=== PATIENT | male | born 1965 | race Caucasian/White ===

== ENCOUNTER 2021-04-23 15:12 | Emergency (ER) | payer BC ==
[~2021-04-23] VITALS: Ht 178 cm; Wt 103.0 kg
--- NOTE | 2021-04-23 15:44 | ED Integumentary General ---
General Chief Complaint: Bite-Animal/Human/Insect Stated Complaint: POSS SPIDER BITE,SWELLING Nursing Triage Note: PT STATES HE WAS SMOKING SOME MEAT AND MAY HAVE GOTTEN BIT BY A SPIDER WHEN HE WAS GRABBING WOOD FROM THE PILE. LT HAND SWOLLEN WITH POSSIBLE BITE AL. PT DID NOT SEE THE SPIDER. Source: patient Exam Limitations: no limitations History of Present Illness Date Seen by Provider: April 23, 2021 Time Seen by Provider: 15:35 Initial Comments Patient is a 56-year-old male who presents to the emergency department today with a chief complaint of a concern for a bite of some type on the dorsum of his left hand between his thumb and index finger. Patient was rummaging around in a wood pile getting ready to use a smoker when he went inside afterwards and then noticed that his left hand was starting to swell. Patient has a small scrape to the dorsum of the left hand and possibly a couple of puncture trent on the back of his hand. Patient did not see a snake nor did he see an insect that actually bit him. He denies any shortness of breath, chest pain, pain in his left arm or hand at the moment. He does have some discomfort with the swelling however. No fevers chills or other muscle aches. All other review of systems reviewed and negative except as stated above. Timing/Duration: this afternoon Severity: mild Location: hands Possible Cause: other (Possibly an insect bite possibly a snake bite) Associated Symptoms: denies symptoms Allergies and Home Medications Allergies Coded Allergies: No Known Drug Allergies (Unverified , 04/23/21) Home Medications No Active Prescriptions or Reported Meds Patient Home Medication List Home Medication List Reviewed: Yes Review of Systems Review of Systems Constitutional: see HPI; No chills, No diaphoresis EENTM: no symptoms reported Respiratory: no symptoms reported Cardiovascular: no symptoms reported Gastrointestinal: no symptoms reported; No nausea, No vomiting Genitourinary: no symptoms reported Musculoskeletal: joint pain (Swelling and mild discomfort to the dorsum of the left hand) Skin: lesions Hematologic/Lymphatic: Denies Easy Bleeding, Denies Easy Bruising All Other Systems Reviewed Negative Unless Noted: Yes Past Vpizifc-Drnbld-Jfoxzc Hx Patient Social History Recent Infectious Disease Expo: No Physical Exam Vital Signs Vital Signs - First Documented 04/23/21 15:34 Temp 36.9 Pulse 78 Resp 20 B/P (MAP) 162/99 (120) Pulse Ox 97 O2 Delivery Room Air Capillary Refill : Less Than 3 Seconds General Appearance: WD/WN, no apparent distress Neck: full range of motion Cardiovascular: regular rate, rhythm Respiratory: normal breath sounds, no respiratory distress, no accessory muscle use Extremities: normal range of motion, swelling (Patient has swelling over the dorsum of the hand between the thumb and index finger, bruising noted to the rest of the dorsum of the hand that is mild. He does have what appears to be a small scrape at the center of the alleged bite site. It is nonfluctuant.) Neurologic/Psychiatric: alert, normal mood/affect, oriented x 3 Skin: normal color, warm/dry, other (See extremity evaluation) Progress/Results/Core Measures Results/Orders Lab Results Laboratory Tests Test 04/23/21 15:55 Range/Units White Blood Count 8.8 4.3-11.0 10^3/uL Red Blood Count 5.30 4.30-5.52 10^6/uL Hemoglobin 16.1 13.3-17.7 g/dL Hematocrit 47 40-54 % Mean Corpuscular Volume 89 80-99 fL Mean Corpuscular Hemoglobin 30 25-34 pg Mean Corpuscular Hemoglobin Concent 34 32-36 g/dL Red Cell Distribution Width 11.9 10.0-14.5 % Platelet Count 207 130-400 10^3/uL Mean Platelet Volume 10.7 9.0-12.2 fL Immature Granulocyte % (Auto) 0 % Neutrophils (%) (Auto) 65 42-75 % Lymphocytes (%) (Auto) 23 12-44 % Monocytes (%) (Auto) 8 0-12 % Eosinophils (%) (Auto) 4 0-10 % Basophils (%) (Auto) 1 0-10 % Neutrophils # (Auto) 5.7 1.8-7.8 10^3/uL Lymphocytes # (Auto) 2.0 1.0-4.0 10^3/uL Monocytes # (Auto) 0.7 0.0-1.0 10^3/uL Eosinophils # (Auto) 0.3 0.0-0.3 10^3/uL Basophils # (Auto) 0.1 0.0-0.1 10^3/uL Immature Granulocyte # (Auto) 0.0 0.0-0.1 10^3/uL Prothrombin Time 13.3 12.2-14.7 SEC INR Comment 1.0 0.8-1.4 Activated Partial Thromboplast Time 25 24-35 SEC Sodium Level 140 135-145 MMOL/L Potassium Level 4.4 3.6-5.0 MMOL/L Chloride Level 106 98-107 MMOL/L Carbon Dioxide Level 20 L 21-32 MMOL/L Anion Gap 14 5-14 MMOL/L Blood Urea Nitrogen 12 7-18 MG/DL Creatinine 0.84 0.60-1.30 MG/DL Estimat Glomerular Filtration Rate > 60 BUN/Creatinine Ratio 14 Glucose Level 81 70-105 MG/DL Calcium Level 9.7 8.5-10.1 MG/DL Total Creatine Kinase 125 30-200 U/L My Orders Orders - CRYSTAL TEIXEIRA MD Cbc With Automated Diff (04/23/21 15:38) Basic Metabolic Panel (04/23/21 15:38) Protime With Inr (04/23/21 15:38) Partial Thromboplastin Time (04/23/21 15:38) Creatine Kinase (04/23/21 15:38) Vital Signs/I&O 04/23/21 15:34 Temp 36.9 Pulse 78 Resp 20 B/P (MAP) 162/99 (120) Pulse Ox 97 O2 Delivery Room Air Blood Pressure Mean: 120 Progress Progress Note : Time: 16:39 Progress Note Patient's labs evaluated, no abnormalities are found. Patient's reassessed and he has no further swelling or discoloration in his hand or forearm. He is comfortable with the plan of discharge which is to continue ice off and on to the left hand for the remainder of the evening as well as [id number] ibuprofen 600 mg every 8 hours as needed for pain. He has no clinical or objective findings to warrant further studies nor admission from the emergency department at this time. All questions are sought and answered. Patient is stable for discharge. Departure Impression Primary Impression: Contusion of left hand Qualified Codes: S60.222A - Contusion of left hand, initial encounter Additional Impression: Insect bite of left hand Qualified Codes: S60.562A - Insect bite (nonvenomous) of left hand, initial encounter; W57.XXXA - Bitten or stung by nonvenomous insect and other nonvenomous arthropods, initial encounter Disposition: 01 HOME, SELF-CARE Condition: Stable Departure-Patient Inst. Decision time for Depature: 16:40 Referrals: FRANCIS MCKEON DO (PCP/Family) Primary Care Physician Patient Instructions: Insect Bites and Stings ED Add. Discharge Instructions: Keep ice on the left hand off and on throughout the rest of the evening. Take [id number] ibuprofen as needed for swelling and discomfort. Come back to the emergency room if you notice any worsening swelling especially swelling that is traveling up your arm with redness, fever or any other emergent concerning symptoms develop. Scripts No Active Prescriptions or Reported Meds CRYSTAL TEIXEIRA MD April 23, 2021 15:44
[2021-04-23 16:05] LABS: BASOPHILS # (AUTO) 0.1 10^3/uL (0.0-0.1); BASOPHILS % (AUTO) 1 % (0-10); EOSINOPHILS # (AUTO) 0.3 10^3/uL (0.0-0.3); EOSINOPHILS % (AUTO) 4 % (0-10); HEMATOCRIT 47 % (40-54); HEMOGLOBIN 16.1 g/dL (13.3-17.7); LYMPHOCYTES % (AUTO) 23 % (12-44); MEAN CORPUSCULAR HEMOGLOBIN 30 pg (25-34); MEAN CORPUSCULAR HGB CONC 34 g/dL (32-36); MEAN CORPUSCULAR VOLUME 89 fL (80-99); MEAN PLATELET VOLUME 10.7 fL (9.0-12.2); MONOCYTES # (AUTO) 0.7 10^3/uL (0.0-1.0); MONOCYTES % (AUTO) 8 % (0-12); NEUTROPHILS # (AUTO) 5.7 10^3/uL (1.8-7.8); NEUTROPHILS % (AUTO) 65 % (42-75); PLATELET COUNT 207 10^3/uL (130-400); WHITE BLOOD COUNT 8.8 10^3/uL (4.3-11.0)
[2021-04-23 16:27] LABS: CHLORIDE 106 MMOL/L (98-107); POTASSIUM 4.4 MMOL/L (3.6-5.0); PROTHROMBIN TIME PATIENT 13.3 SEC (12.2-14.7); SODIUM 140 MMOL/L (135-145)
[2021-04-23 16:28] LABS: CALCIUM 9.7 MG/DL (8.5-10.1)
[2021-04-23 16:29] LABS: GLUCOSE 81 MG/DL (70-105)
[2021-04-23 16:30] LABS: CARBON DIOXIDE 20 MMOL/L (21-32)
[2021-04-23 16:33] LABS: CREATININE SERUM 0.84 MG/DL (0.60-1.30); GFR ESTIMATED > 60
[2021-04-23 16:34] LABS: BUN/CREATININE RATIO 14
[2021-04-23 16:35] LABS: CREATINE KINASE 125 U/L (30-200)
[2021-04-23 16:43] VITALS: BP 162/99
== END 2021-04-23 16:43 | disposition home or self-care (01) ==
LOC: EDUNIT# 15:12 → ER 15:14
DX: S60.562A Insect bite (nonvenomous) of left hand, initial encounter (principal); W57.XXXA Bitten or stung by nonvenomous insect and other nonvenomous arthropods, initial encounter
CPT/HCPCS: 36415; 80048; 82550; 85025; 85610; 85730